=== PATIENT | female | born 1990 | race Two or more races ===

== ENCOUNTER 2023-01-29 00:11 | Emergency (ER) | payer OTHER ==
[~2023-01-29] VITALS: Ht 152.4 cm; Wt 56.7 kg
[2023-01-29] MEDS ORDERED: NORFLEX100MG (00:31)
== END 2023-01-29 02:40 | disposition home or self-care (01) ==
LOC: ER 00:11
DX: M62.830 Muscle spasm of back (principal)

== ENCOUNTER 2023-01-30 14:05 | Emergency (ER) | payer OTHER ==
[~2023-01-30] VITALS: Ht 160 cm; Wt 61.2 kg
[~2023-01-30 14:05] MED LIST: NORFLEX100MG
== END 2023-01-30 18:41 | disposition home or self-care (01) ==
LOC: ER 14:05
PROVIDERS: General Practice
DX: M94.0 Chondrocostal junction syndrome [Tietze] (principal); R25.2 Cramp and spasm; M54.2 Cervicalgia

== ENCOUNTER 2024-06-27 19:21 | Emergency (ER) | payer OTHER ==
[~2024-06-27] VITALS: Ht 152.4 cm; Wt 61.7 kg
[2024-06-27] MEDS ORDERED: FAMOtidine 10 MG/ML (4ML VIAL) IV ONE (20:45)
[2024-06-27] MEDS ORDERED: KETOROLAC TROMETHAMINE 30 MG VIAL IU ONE (20:45)
[2024-06-27] MEDS ORDERED: FAMOTIDINE/PF 20 MG/2 ML VIAL ONE (20:59)
[2024-06-27 21:09] LABS: HEMATOCRIT 36.1 % (36.0-45.00); MEAN CELL VOLUME 84.2 fL (80.00-100.00); MEAN CORPUSCULAR HEMOGLOBIN 28.1 pg (27.00-32.0); MEAN CORPUSCULAR HGB CONC 33.3 g/dl (32.0-36.0); PLATELET COUNT 332 K/uL (150-450); RED BLOOD COUNT 4.29 M/uL (4.00-6.00)
[2024-06-27 21:30] LABS: PH,URINE 5.5 (5.0-8.0); URINE APPEARANCE Clear; URINE BILIRRUBIN Negative (NEGATIVE); URINE BLOOD Negative; URINE COLOR Yellow; URINE GLUCOSE Negative (NEGATIVE); URINE KETONE 15 (NEGATIVE); URINE LEUKOCYTE Negative; URINE NITRATE Negative; URINE PROTEIN Negative (NEGATIVE); URINE UROBILINOGEN 0.2 E.U./dl
[2024-06-27 21:31] LABS: URINE BACTERIA 450.4 uL (0.0-1933); URINE EPITHELIAL CELLS 16.4 uL (0.0-38.8); URINE RBC 3.2 uL (0.0-20.8); URINE WBC 4.1 uL (0.0-23.2)
[2024-06-27 21:54] LABS: ALKALINE PHOSPHATASE 46 U/L (50-136); ALT/SGPT 21 U/L (12-78); ANION GAP 5 (10.0-20.0); AST/SGOT 24 U/L (15-37); BILIRUBIN TOTAL 0.41 mg/dL (0.3-1.2); BLOOD UREA NITROGEN 14 mg/dL (7-18); BUN CREA RATIO 16 (7.0-25.0); CALCIUM 9.5 mg/dL (8.5-10.1); CARBON DIOXIDE 31 mEq/L (21-32); CHLORIDE 105 mmol/L (98-107); CREATININE SERUM 0.88 mg/dL (0.55-1.02); GFR 72.71; GLUCOSE FASTING 85 mg/dL (65-100); HCG QUANTITATIVE < 1 mUI/mL (1-3); OSMOLALITY SERUM 274 MOSM/KG (275-295); POTASSIUM 4.09 mEq/L (3.5-5.1); SODIUM 137 mmol/L (136-145)
[2024-06-27 23:00] VITALS: BP 112/74; O2SAT 100
[2024-06-28] MEDS ORDERED: PEPCID40 MG PO (03:56)
[2024-06-28] MEDS ORDERED: KETO10TA2 PO (03:56)
== END 2024-06-28 04:06 ==
LOC: ER 19:23
PROVIDERS: General Practice
DX: N83.201 Unspecified ovarian cyst, right side (principal); Z87.09 Personal history of other diseases of the respiratory system